=== PATIENT | female | born 2000 | race Two or more races ===

== ENCOUNTER 2024-08-22 08:31 | Outpatient (CLI) | payer OTHER | END 2024-08-22 08:39 | disposition home or self-care (01) | LOC: SONOGRAMA 08:31 | DX: M79.641 Pain in right hand (principal); M25.531 Pain in right wrist ==

== ENCOUNTER 2024-08-23 07:41 | Outpatient (CLI) | payer OTHER | END 2024-08-23 07:46 | disposition home or self-care (01) | LOC: SONOGRAMA 07:41 | DX: M25.511 Pain in right shoulder (principal); M25.521 Pain in right elbow ==

== ENCOUNTER 2024-08-31 07:25 | Outpatient (CLI) | payer OTHER | END 2024-08-31 07:26 | disposition home or self-care (01) | LOC: NUCLEAR 07:25 | DX: M79.621 Pain in right upper arm (principal); M79.641 Pain in right hand ==

== ENCOUNTER → 2024-09-01 10:36 | Outpatient (CLI) | payer OTHER | END | disposition home or self-care (01) | LOC: NUCLEAR 10:36 | DX: M79.621 Pain in right upper arm (principal); M79.641 Pain in right hand ==